=== PATIENT | male | born 1995 | race Caucasian/White ===

== ENCOUNTER 2023-04-05 14:20 | Emergency (ER) | payer OTHER ==
--- NOTE | 2023-04-05 14:56 | XRAY ---
Indication: Crush injury. Comparison: None 3 view right fingers demonstrates comminuted displaced 2nd finger tuft fracture with soft tissue swelling/laceration. No other bony, articular, or soft tissue abnormalities.
[2023-04-05 15:18] VITALS: O2SAT 98
[2023-04-05 15:32] VITALS: PULSE 90
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
[2023-04-05] MEDS ORDERED: Sensorcaine 0.25% 10 ML ONE (16:19)
[2023-04-05] MEDS ORDERED: XYLOCAINE 1% HCL 20 ML MDV ONE (16:25)
[2023-04-05] MEDS ORDERED: PEROXIDE 3% ONE (17:26)
[2023-04-05 17:45] VITALS: BP 135/90; RESP 18; TEMP 97.2
--- NOTE | 2023-04-06 08:03 | OP ---
SURGERY DATE/TIME: 04/05/2023 7014 PREOPERATIVE DIAGNOSIS: Open tuft fracture with comminuted complex laceration nail bed right index finger. POSTOPERATIVE DIAGNOSIS: Open tuft fracture with comminuted complex laceration nail bed right index finger. PROCEDURE: Open treatment of tuft fracture right index finger with repair complex laceration nail bed. SURGEON: Conrado York II, D.O. DESCRIPTION OF PROCEDURE: The patient is identified, consent was obtained in the ER. At this point, the finger was anesthetized after cleansing the skin with Betadine via metacarpal block utilizing a 50-50 mixture of 0.025% Marcaine plain with 1% Xylocaine plain. A total of 6 cc of fluid was utilized. Once an appropriate level of anesthesia had been obtained, the finger was scrubbed with Betadine scrub and paint. At this point Samantha was utilized to exsanguinate the finger and also act as a tourniquet. At this point, the nail plate which was barely attached was then removed and saved for later use as a biologic dressing. The wound was then debrided. The laceration was inspected. A few small fragments of the distal tuft were easily removed with a pair of scissors. At this point then the wound was closed with 5-0 Nylon suture. Once this had been approximated, the nail bed was repaired with multiple sutures of 6-0 Vicryl suture. The nail plate was then cleaned of debris and placed under the nail fold and held in place with a 5-0 Nylon suture. Tourniquet was deflated. The wound was then dressed with Adaptic, 4x4 and sterile dressing. The patient tolerated the procedure well.
--- NOTE | 2023-04-06 08:14 | CONS ---
ORTHOPEDIC EMERGENCY ROOM CONSULTATION CONSULT DATE: 04/05/2023 HISTORY: The patient was seen and examined and his chart reviewed. 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 He got his finger crushed when he hit it with a hammer sustaining an injury to the tip of the finger and avulsing the nail plate nearly completely avulsing the nail plate. X-ray showed an open tuft fracture and inspection of the wound shows that there is a complex laceration of the nail bed. No other injuries were sustained and good capillary refill. Sensory is intact to light touch. Flexor and extensor tendon function is intact. IMPRESSION: Open tuft fracture right index finger with complex laceration nail bed. PLAN: Repair laceration and open treatment of tuft fracture with repair of nail bed. The patient understands this. He is agreeable to proposed course of treatment. Consent was given and signed. He will be repaired here in the emergency room at this time.
== END 2023-04-05 17:56 | disposition home or self-care (01) ==
LOC: ED 14:20
DX: S62.630B Displaced fracture of distal phalanx of right index finger, initial encounter for open fracture (principal); W23.0XXA Caught, crushed, jammed, or pinched between moving objects, initial encounter; Y99.0 Civilian activity done for income or pay; Z79.891 Long term (current) use of opiate analgesic
CPT/HCPCS: 11760; 26765; 73140; 99221; 99283; A9270-GY